=== PATIENT | male | born 1980 | race Caucasian/White ===

== ENCOUNTER 2018-12-07 09:29 | Emergency (ER) | payer BC ==
[2018-12-07 10:24] VITALS: BP 113/71
--- NOTE | 2018-12-07 11:07 | UC ---
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 SORE THROAT. DENIES COUGH. NAUSEA, NO VOMITING OR DIARRHEA. PT'S KIDS RECENTLY TREATED FOR STREP." -ST feels like shards of glass. + sweating. took ibuprofen before coming in. - History of Current Complaint Chief Complaint: UCRespiratory Stated Complaint: SORE THROAT Time Seen by Provider: 12/07/18 10:59 Pain Intensity: 6 - Allergies/Home Medications Allergies/Adverse Reactions: Allergies Allergy/AdvReac Type Severity Reaction Status Date / Time codeine Allergy Unknown vomiting , Verified 12/07/18 10:15 sweats Home Medications: Home Medications Dm/Acetaminophen/Doxylamine [Vicks Nyquil Cold-Flu Liquid] 1 liq PO PRN [History] Ibuprofen TAB* [Advil TAB*] 600 mg PO Q6H PRN 12/07/18 [History Confirmed ] PMH/Surg Hx/FS Hx/Imm Hx Previously Healthy: Yes - Surgical History Surgical History: Yes Surgery Procedure, Year, and Place: VASECTOMY - Family History Known Family History: Positive: Hypertension - Social History Alcohol Use: Occasionally Substance Use Type: None Smoking Status (MU): Current Some Day Smoker Review of Systems All Other Systems Reviewed And Are Negative: Yes Constitutional: Positive: Fever, Chills, Fatigue Skin: Negative: Rash Eyes: Positive: Negative ENT: Positive: Sore Throat. Negative: Ear Ache, Nasal Discharge, Sinus Congestion, Sinus Pain/Tenderness Respiratory: Positive: Negative. Negative: Shortness Of Breath, Cough Cardiovascular: Positive: Negative Gastrointestinal: Positive: Negative Genitourinary: Positive: Negative Motor: Positive: Negative Neurovascular: Positive: Negative Musculoskeletal: Positive: Negative Neurological: Positive: Negative Psychological: Positive: Negative Is Patient Immunocompromised?: No Physical Exam Triage Information Reviewed: Yes Appearance: Ill-Appearing - visible perspiration. Vital Signs: Initial Vital Signs Temp 97.4 F 12/07/18 10:16 Pulse 90 12/07/18 10:16 Resp 16 12/07/18 10:16 BP 113/71 12/07/18 10:16 Pulse Ox 97 12/07/18 10:16 Vital Signs Reviewed: Yes Eye Exam: Normal Eyes: Positive: Conjunctiva Clear ENT: Positive: Pharyngeal erythema, TMs normal, Tonsillar exudate, Uvula midline. Negative: Nasal congestion, Nasal drainage, TM bulging, TM dull, TM red, Hoarse voice - no hot potato voice, Sinus tenderness Dental Exam: Normal Neck exam: Normal Neck: Positive: Supple, Tenderness @, Enlarged Nodes @ - b/l cervical anterior LAD, tender.. Negative: Nuchal Rigidity Respiratory Exam: Normal Respiratory: Positive: Lungs clear, Normal breath sounds, No respiratory distress, No accessory muscle use. Negative: Crackles, Rhonchi, Stridor, Wheezing Cardiovascular Exam: Normal Cardiovascular: Positive: RRR Abdominal Exam: Normal Musculoskeletal Exam: Normal Neurological Exam: Normal Psychological Exam: Normal Skin Exam: Normal Throat Pain/Nasal Course/Dx - Course Course Of Treatment: see below for details -rapid strep neg. -thropat cx ordered bc systemic sx. could still be viral. can't r/o abscess. -treat w/ clinda, probiotic, prednisone and ENT f/u. prefers to f/u locally w/ specified ENT. -to ER w/ worsening sx. -needs to push fluids. has had at least 16 oz water today. will cont to sip and increase intake, -reliable historian. - Differential Dx/Diagnosis Differential Diagnosis/HQI/PQRI: Peritonsillar Abscess, Pharyngitis, Tonsillitis , URI Provider Diagnosis: Tonsillitis Discharge - Sign-Out/Discharge Documenting (check all that apply): Patient Departure All imaging exams completed and their final reports reviewed: No Studies - Discharge Plan Condition: Stable Disposition: HOME Prescriptions: Clindamycin Cap(NF) [Clindamycin Cap 300 mg Cap(NF)] 300 mg PO Q6H 10 Days #40 cap predniSONE TAB* [Deltasone 20 MG TAB*] 40 mg PO DAILY 5 Days #5 tab Patient Education Materials: Tonsillitis (ED) Referrals: Lisa Ahumada MD [Medical Doctor] - 7 Days Melquiades Duckworth MD [Medical Doctor] - 3 Days No Primary Care Phys,NOPCP [Primary Care Provider] - Additional Instructions: -Make sure to take a probiotic daily while on antibiotics to help prevent a potential complication of antibiotic use called c diff. Some well known brands that can be found OTC are moziy and iPositioning. Make sure to complete the entire prescription unless advised otherwise by your health care provider. -The rapid strep test is negative. I have sent off a throat culture on you in case this is a false negative test result. Those results will take 2-3 days to return. I am concerned b/c of the degree of your symptoms are more consistent with a bacterial infection, but could also be due to a virus. There is a possibility of an abscess behind your tonsils that is not visible without equipment used by an ENT specialist. We discussed treating you aggressively in case there is an abscess. This treatment would also be effective for strep throat. -If your symptoms worsen, you are not able to reduce the fever with OTC meds, you start drooling or are unable to swallow, please go to the ER immediately. -We discussed risks of prednisone including but not limited to anxiety, agitation, insomnia, GI upset, elevated blood pressures and blood sugar readings , adrenal crisis and avascular necrosis of the hip. - Billing Disposition and Condition Condition: STABLE Disposition: Home
== END 2018-12-07 11:58 | disposition home or self-care (01) ==
LOC: UCCORT 09:29
DX: J03.90 Acute tonsillitis, unspecified (principal); F17.210 Nicotine dependence, cigarettes, uncomplicated
CPT/HCPCS: 87070; 87651; 99202; G0463

== ENCOUNTER 2019-03-17 09:00 | Emergency (ER) | payer BC ==
[2019-03-17 09:22] VITALS: BP 122/73
--- NOTE | 2019-03-17 09:42 | ED ---
Lower Extremity - HPI Summary HPI Summary: 38 yr old male with the complaint of left foot pain. Onset yesterday when playing soccer. He was running and felt a pain on the bottom of the foot. he has had plantar fascititis in the past. The pain got worse when went to bed and hurt more when got up and put weight on it. His pain is moderate, and associated with mild STS over the medial arch area. No heel pain. No pain on ball of foot. No other complaints. - History of Current Complaint Chief Complaint: UCLowerExtremity Stated Complaint: LEFT FOOT INJURY Time Seen by Provider: 03/17/19 09:17 Pain Intensity: 7 - Allergies/Home Medications Allergies/Adverse Reactions: Allergies Allergy/AdvReac Type Severity Reaction Status Date / Time codeine Allergy Unknown vomiting , Verified 03/17/19 09:22 sweats PMH/Surg Hx/FS Hx/Imm Hx Endocrine/Hematology History: Denies: Hx Diabetes, Hx Thyroid Disease Cardiovascular History: Denies: Hx Hypertension Respiratory History: Denies: Hx Asthma, Hx Chronic Obstructive Pulmonary Disease (COPD) GI History: Denies: Hx Ulcer - Surgical History Surgery Procedure, Year, and Place: VASECTOMY Infectious Disease History: No Infectious Disease History: Denies: Hx Hepatitis, Hx Human Immunodeficiency Virus (HIV), Traveled Outside the [place] in Last 30 Days - Family History Known Family History: Positive: Hypertension - Social History Occupation: Employed Full-time Alcohol Use: Occasionally Substance Use Type: Reports: None Smoking Status (MU): Former Smoker Review of Systems Constitutional: Negative Positive: Other - left foot pain All Other Systems Reviewed And Are Negative: Yes Physical Exam Triage Information Reviewed: Yes Vital Signs On Initial Exam: Initial Vitals Temp Pulse Resp BP Pulse Ox 97.7 F 50 18 122/73 100 03/17/19 09:16 03/17/19 09:16 03/17/19 09:16 03/17/19 09:16 03/17/19 09:16 Vital Signs Reviewed: Yes Appearance: Positive: Well-Appearing, No Pain Distress Skin: Positive: Warm, Skin Color Reflects Adequate Perfusion Head/Face: Positive: Normal Head/Face Inspection Eyes: Positive: EOMI ENT: Positive: Normal ENT inspection Respiratory/Lung Sounds: Positive: Other - normal effort Cardiovascular: Positive: Pulses are Symmetrical in both Upper and Lower Extremities - normal DP and PT pulse Abdomen Description: Negative: Distended Musculoskeletal: Positive: Strength/ROM Intact, Other - left foot:There is mild STS medial arch, no bruise. There is mild tenderness over the medial arch as well. no laceration, no abrasions. Non tender over the achilles tendon. Neurological: Positive: Alert, Oriented to Person Place, Time, CN Intact II-III , Speech Normal Psychiatric: Positive: Normal Diagnostics - Vital Signs Vital Signs Temp Pulse Resp BP Pulse Ox 03/17/19 09:16 97.7 F 50 18 122/73 100 - Laboratory Lab Statement: Any lab studies that have been ordered have been reviewed, and results considered in the medical decision making process. - Radiology left foot Radiology Interpretation Completed By: Radiologist - nad Lower Extremity Course/Dx - Course Course Of Treatment: 38 yr old with plantar fascia strain. DC home. Referral to ortho and podiatry. crutches. non weight bear. - Diagnoses Provider Diagnoses: Plantar fasciitis of left foot Discharge ED - Sign-Out/Discharge Documenting (check all that apply): Patient Departure All imaging exams completed and their final reports reviewed: Yes - Discharge Plan Condition: Good Disposition: HOME Prescriptions: Ibuprofen TAB* [Motrin TAB* 800 MG] 800 mg PO ONCE PRN #20 tab PRN Reason: Pain - Moderate Patient Education Materials: Plantar Fasciitis (ED) Referrals: No Primary Care Phys,NOPCP [Primary Care Provider] - Williams Jones DPM [Doctor of Podiatric Medicine] - 1 Day Brennan Ruiz MD [Medical Doctor] - 1 Day - Billing Disposition and Condition Condition: GOOD Disposition: Home
== END 2019-03-17 10:28 | disposition home or self-care (01) ==
LOC: UCCORT 09:00
DX: M72.2 Plantar fascial fibromatosis (principal); Z87.891 Personal history of nicotine dependence
CPT/HCPCS: 99212; G0463